=== PATIENT | male | born 1965 | race Hispanic/Latino ===

== ENCOUNTER 2017-03-23 14:25 | Outpatient (CLI) | payer OTHER ==
--- NOTE | 2017-03-24 07:43 | XRay Report ---
FINAL REPORT EXAM: XR CHEST ROUTINE 2V HISTORY: FEVER AND CHILLS TECHNIQUE: PA and lateral chest radiographs PRIORS: None. FINDINGS: No mediastinal shift. Cardiac silhouette is not enlarged. Ill-defined posterior left lower lung opacity. No pneumothorax or effusion. No acute skeletal finding. IMPRESSION: Ill-defined posterior left lower lung opacity may represent atelectasis or infection. Consider radiographic follow-up.
== END 2017-03-23 14:26 | disposition home or self-care (01) ==
LOC: XRAY 14:25
PROVIDERS: ATTEND Internal Medicine
DX: R50.9 Fever, unspecified (principal)
CPT/HCPCS: 71046